=== PATIENT | male | born 1955 | race Caucasian/White ===

== ENCOUNTER 2017-07-21 00:06 | Inpatient (IN) | payer MEDICARE, MEDICAID ==
[~2017-07-21] VITALS: Ht 182.9 cm; Wt 82.6 kg
[2017-07-21 01:05] LABS: HEMATOCRIT 33.6 % (39.2-51.8); WHITE BLOOD COUNT 8.3 x10^3/uL (3.4-10)
[2017-07-21 01:17] LABS: ASPARTATE AMINO TRANSFERASE 37 U/L (15-37); BLOOD UREA NITROGEN 14 mg/dL (7-18)
[2017-07-21 01:53] LABS: DAU SCREEN DISCLAIMER
[2017-07-21] MEDS ORDERED: AMPICILLIN/SULBACTAM 3 GM in SODIUM CHLORIDE 0.9% 100 ML IVPB ONE (02:30)
[2017-07-21] MEDS ORDERED: VANCOMYCIN 1,600 MG in SODIUM CHLORIDE 0.9% 250 ML IV ONE (02:30)
[2017-07-21] MEDS ORDERED: VANCOMYCIN PER PHARMACY IV ONE (02:30)
[2017-07-21] MEDS ORDERED: METF10002 PO (03:38)
[2017-07-21] MEDS ORDERED: ENALAPRIL (04:06)
[2017-07-21] MEDS ORDERED: KEPPRA (04:06)
[2017-07-21 04:57] VITALS: BP 124/72
[2017-07-21] MEDS ORDERED: ACETAMINOPHEN 325 MG TABLET PO PRN (05:00)
[2017-07-21] MEDS ORDERED: VANCOMYCIN PER PHARMACY MC PRN (05:00)
[2017-07-21] MEDS ORDERED: ONDANSETRON 2MG/ML, 2ML IVPush PRN (05:00)
[2017-07-21] MEDS: HYDROcodone/APAP 5/325 TABLET PO PRN ×3 (06:20→15:00)
[2017-07-21] MEDS: AMPICILLIN/SULBACTAM 3 GM in SODIUM CHLORIDE 0.9% 100 ML IV SCH ×4 (06:20→23:16)
[2017-07-21] MEDS: HEPARIN 5,000 UNITS/ML, 1ML SQ SCH ×3 (06:21→20:52)
[2017-07-21] MEDS ORDERED: PHARMACOKINETIC MONITORING MC PRN (06:30)
[2017-07-21] MEDS ORDERED: PHARMACOKINETIC CONSULTATION MC ONE (06:30)
[2017-07-21 06:51] VITALS: BP 115/69
[2017-07-21] MEDS: INSULIN ASPART 100 UNITS/ML, PEN SQ-INSULIN SCH ×4 (07:48→21:00)
[2017-07-21] MEDS: SODIUM CHLORIDE 0.9% 1,000 ML IV SCH ×2 (09:35→17:17)
[2017-07-21] MEDS: LEVETIRACETAM 500 MG TABLET PO SCH ×2 (10:38→20:55)
[2017-07-21 13:23] VITALS: BP 116/70
[2017-07-21] MEDS ORDERED: PNEUMOCOCCAL 23 VACCINE IM-VACC ONE (15:00)
[2017-07-21] MEDS ORDERED: VANCOMYCIN 1,600 MG in SODIUM CHLORIDE 0.9% 250 ML IV SCH (15:00)
[2017-07-21 19:08] VITALS: BP 109/68
[2017-07-21] MEDS: NICOTINE 21 MG/24 HR PATCH.TD24 TD SCH (20:55)
[2017-07-21] MEDS: KETOROLAC 30 MG/1 ML IVPush PRN (21:05)
[2017-07-22 01:20] VITALS: BP 116/72
[2017-07-22] MEDS: SODIUM CHLORIDE 0.9% 1,000 ML IV SCH ×3 (03:27→20:31)
[2017-07-22] MEDS: KETOROLAC 30 MG/1 ML IVPush PRN ×4 (03:27→23:46)
[2017-07-22 04:38] LABS: HEMATOCRIT 32.7 % (39.2-51.8); HEMOGLOBIN 10.7 g/dL (13.7-18.0); WHITE BLOOD COUNT 6.8 x10^3/uL (3.4-10)
[2017-07-22 04:48] LABS: BLOOD UREA NITROGEN 16 mg/dL (7-18)
[2017-07-22] MEDS: HYDROcodone/APAP 5/325 TABLET PO PRN ×5 (05:06→22:36)
[2017-07-22] MEDS: AMPICILLIN/SULBACTAM 3 GM in SODIUM CHLORIDE 0.9% 100 ML IV SCH ×4 (05:06→22:35)
[2017-07-22] MEDS: HEPARIN 5,000 UNITS/ML, 1ML SQ SCH ×3 (05:06→20:30)
[2017-07-22 06:59] VITALS: BP 110/61
[2017-07-22] MEDS: INSULIN ASPART 100 UNITS/ML, PEN SQ-INSULIN SCH ×4 (07:00→20:44)
[2017-07-22] MEDS: LEVETIRACETAM 500 MG TABLET PO SCH ×2 (07:48→20:30)
[2017-07-22] MEDS: OMEPRAZOLE 20 MG CAPSULE.DR PO SCH ×2 (08:38→20:30)
[2017-07-22 12:47] VITALS: BP 106/63
[2017-07-22] MEDS: VANCOMYCIN 1,600 MG in SODIUM CHLORIDE 0.9% 250 ML IV SCH (15:34)
[2017-07-22 19:16] VITALS: BP 111/64
[2017-07-22] MEDS: NICOTINE 21 MG/24 HR PATCH.TD24 TD SCH (20:30)
[2017-07-22] MEDS: TEMAZEPAM 15 MG CAPSULE PO PRN (21:32)
[2017-07-23 01:40] VITALS: BP 130/76
[2017-07-23] MEDS: HYDROcodone/APAP 5/325 TABLET PO PRN ×5 (03:11→23:49)
[2017-07-23] MEDS: HEPARIN 5,000 UNITS/ML, 1ML SQ SCH ×3 (04:39→19:54)
[2017-07-23] MEDS: AMPICILLIN/SULBACTAM 3 GM in SODIUM CHLORIDE 0.9% 100 ML IV SCH ×4 (04:40→23:44)
[2017-07-23] MEDS: KETOROLAC 30 MG/1 ML IVPush PRN ×3 (05:49→21:55)
[2017-07-23] MEDS: INSULIN ASPART 100 UNITS/ML, PEN SQ-INSULIN SCH ×4 (07:00→21:00)
[2017-07-23 07:21] VITALS: BP 119/71
[2017-07-23] MEDS: SODIUM CHLORIDE 0.9% 1,000 ML IV SCH ×2 (08:13→14:15)
[2017-07-23 09:04] LABS: BLOOD UREA NITROGEN 17 mg/dL (7-18)
[2017-07-23] MEDS: OMEPRAZOLE 20 MG CAPSULE.DR PO SCH ×2 (09:36→19:52)
[2017-07-23] MEDS: VANCOMYCIN 1,600 MG in SODIUM CHLORIDE 0.9% 250 ML IV SCH (09:36)
[2017-07-23] MEDS: LEVETIRACETAM 500 MG TABLET PO SCH ×2 (09:36→19:52)
[2017-07-23 12:47] VITALS: BP 111/67
[2017-07-23] MEDS ORDERED: MAGNESIUM SULFATE PMX 2GM/50ML 50 ML IV ONE (13:00)
[2017-07-23] MEDS ORDERED: GADOBUTROL 7.5 MMOL/7.5 ML PFS ONE (16:17)
[2017-07-23 19:30] VITALS: BP 128/73
[2017-07-23] MEDS: NICOTINE 21 MG/24 HR PATCH.TD24 TD SCH (19:54)
[2017-07-23] MEDS: TEMAZEPAM 15 MG CAPSULE PO PRN (21:55)
[2017-07-24 01:11] VITALS: BP 113/64
[2017-07-24] MEDS: SODIUM CHLORIDE 0.9% 1,000 ML IV SCH (03:04)
[2017-07-24] MEDS: VANCOMYCIN 1,600 MG in SODIUM CHLORIDE 0.9% 250 ML IV SCH (03:04)
[2017-07-24] MEDS: morphine SULFATE 10 MG/ML, 1ML IVPush PRN ×2 (04:12→08:43)
[2017-07-24] MEDS: KETOROLAC 30 MG/1 ML IVPush PRN (04:12)
[2017-07-24] MEDS: HEPARIN 5,000 UNITS/ML, 1ML SQ SCH (05:00)
[2017-07-24] MEDS: AMPICILLIN/SULBACTAM 3 GM in SODIUM CHLORIDE 0.9% 100 ML IV SCH (05:17)
[2017-07-24] MEDS: INSULIN ASPART 100 UNITS/ML, PEN SQ-INSULIN SCH (07:00)
[2017-07-24 07:37] VITALS: BP 124/74
[2017-07-24 07:59] LABS: HEMATOCRIT 32.5 % (39.2-51.8); HEMOGLOBIN 10.7 g/dL (13.7-18.0); WHITE BLOOD COUNT 5.5 x10^3/uL (3.4-10)
[2017-07-24 08:10] LABS: BLOOD UREA NITROGEN 16 mg/dL (7-18); C-REACTIVE PROTEIN, QUANT 0.57 mg/dL (0.02-0.49)
== END 2017-07-24 11:14 | disposition left against medical advice (07) | DRG 637 ==
LOC: ED 02:37 → EDIP 02:45 → 3NE 04:13
PROVIDERS: ADMIT Internal Medicine; ATTEND Internal Medicine
DX: E11.621 Type 2 diabetes mellitus with foot ulcer (principal); E43 Unspecified severe protein-calorie malnutrition; M86.172 Other acute osteomyelitis, left ankle and foot; L89.899 Pressure ulcer of other site, unspecified stage; E11.65 Type 2 diabetes mellitus with hyperglycemia; K74.60 Unspecified cirrhosis of liver; D64.9 Anemia, unspecified; E11.69 Type 2 diabetes mellitus with other specified complication; E83.42 Hypomagnesemia; F17.210 Nicotine dependence, cigarettes, uncomplicated; F41.9 Anxiety disorder, unspecified; G40.909 Epilepsy, unspecified, not intractable, without status epilepticus; G89.29 Other chronic pain; I10 Essential (primary) hypertension; L03.032 Cellulitis of left toe; R62.7 Adult failure to thrive; Z91.19 Patient's noncompliance with other medical treatment and regimen
CPT/HCPCS: 36415; 71010; 80048; 80053; 80202; 80307; 82010; 82040; 82803; 82962; 83036; 83735; 85025; 85610; 85651; 86140; 87040; 87324; 90732; 93005; 96374; A9585; J0295; J1644; J1885; J3370; G0479; J2270; J3475; J7030; J7050